=== PATIENT | female | born 1985 | race Caucasian/White ===

== ENCOUNTER 2020-04-11 20:42 | Emergency (ER) | payer OTHER ==
[~2020-04-11] VITALS: Ht 170.2 cm; Wt 113.4 kg
[2020-04-11 22:04] VITALS: BP 129/51
--- NOTE | 2020-04-12 07:36 | EKG ---
[facility] [place] [address] ELECTROCARDIOGRAM REPORT Name: MICHAEL EL Room #: DEP [facility]#: [id number] Admission: 04/11/20 Attend Phys: Discharge: 04/11/20 Date of : 85 Report #: [id number] THIS REPORT FOR: cc: NEELA - Sarah family physician/PCP NEELA - Sarah family physician/PCP Gordo Martinez MD [facility] THIS REPORT FOR: //name// [facility] ED Test Date: 2020-04-11 Test Time: 21:40:33 Pat Name: MICHAEL EL Department: Room: Gender: F [employer]: MARIE : 1985 Requested By: Loco Brown Order Number: [id number] MD: Gordo Martinez Measurements Intervals Loving Rate: 75 P: 47 TX: 128 QRS: 16 QRSD: 92 T: 17 QT: 385 QTc: 430 Interpretive Statements Sinus rhythm Normal tracing No previous ECG available for comparison Electronically Signed On 04-12-2020 7:35:59 CDT by Gordo Martinez [email or web address] <ELECTRONICALLY SIGNED> By: Gordo Martinez MD, [facility] 04/12/20 0735 [id number] 39 Gordo Martinez MD, [facility] /EPI
== END 2020-04-11 22:04 | disposition home or self-care (01) ==
LOC: ER 20:42
DX: O9A.212 Injury, poisoning and certain other consequences of external causes complicating pregnancy, second trimester (principal); S80.01XA Contusion of right knee, initial encounter; R55 Syncope and collapse; Z3A.17 17 weeks gestation of pregnancy; Z98.890 Other specified postprocedural states